=== PATIENT | male | born 1965 | race Caucasian/White ===

== ENCOUNTER 2018-05-13 11:20 | Emergency (ER) | payer BC, OTHER ==
--- NOTE | 2018-05-13 12:02 | UC ---
Lower Extremity/Ankle HPI - HPI Summary HPI Summary: 4 DAYS OF WORSENING PAIN, REDNESS, SWELLING LEFT FOOT ACROSS MTP JOINTS. WORST AT 1ST MTP. PT WITH KNOWN H/O GOUT. SAYS THIS IS FOR SURE A GOUTY FLARE. NO TRAUMA. - History of Current Complaint Chief Complaint: UCLowerExtremity Stated Complaint: FOOT COMPLAINT Time Seen by Provider: 05/13/18 11:36 Hx Obtained From: Patient Onset/Duration: Gradual Onset, Lasting Days, Still Present Severity Initially: Moderate Severity Currently: Moderate Pain Intensity: 4 Pain Scale Used: 0-10 Numeric Aggravating Factor(s): Standing, Ambulation Alleviating Factor(s): Rest Able to Bear Weight: Yes - WITH PAIN - Allergies/Home Medications Allergies/Adverse Reactions: Allergies Allergy/AdvReac Type Severity Reaction Status Date / Time No Known Allergies Allergy Verified 05/13/18 11:30 Home Medications: Home Medications Acetaminophen TAB* [Tylenol TAB*] 650 mg PO Q4H PRN 05/13/18 [History Confirmed 05/13/18] PMH/Surg Hx/FS Hx/Imm Hx - Additional Past Medical History Additional PMH: GOUT - Surgical History Surgical History: Yes Surgery Procedure, Year, and Place: tonsillectomy, detached retina - Social History Alcohol Use: Rare Substance Use Type: None Smoking Status (MU): Never Smoked Tobacco Review of Systems All Other Systems Reviewed And Are Negative: Yes Constitutional: Positive: Negative Skin: Positive: Other - REDNESS Respiratory: Positive: Negative Cardiovascular: Positive: Negative Gastrointestinal: Positive: Negative Musculoskeletal: Positive: Arthralgia, Decreased ROM, Edema Physical Exam Triage Information Reviewed: Yes Appearance: Well-Appearing, No Pain Distress, Well-Nourished Vital Signs: Initial Vital Signs Temp 98.3 F 05/13/18 11:24 Pulse 79 05/13/18 11:24 Resp 16 05/13/18 11:24 Pulse Ox 99 05/13/18 11:24 Vital Signs Reviewed: Yes Eyes: Positive: Conjunctiva Clear ENT: Positive: Hearing grossly normal Neck: Positive: Supple Respiratory: Positive: No respiratory distress, No accessory muscle use Cardiovascular: Positive: Pulses Normal Abdomen Description: Positive: Soft Musculoskeletal: Positive: ROM Limited @ - LEFT FOOT TOES, Edema @ - LEFT FOOT DISTALLY, Other: - TTP ALL MTP JOINTS, WORST AT 1ST MTP Neurological: Positive: Alert Psychological: Positive: Age Appropriate Behavior Skin: Positive: Other - ERYTHEMA AND WARMTH LEFT FOOT 1ST MTP Lower Extremity Course/Dx - Course Course Of Treatment: STATES HE USUALLY GETS COLCHICINE FOR GOUTY FLARES BUT THAT IT DOESN'T SEEM TO WORK VERY WELL. WILL TRY PREDNISONE. ADVISED PCP F/U IN SEVERAL WEEKS TO DISCUSS LABS AND DAILY PROPHYLACTIC TX. - Differential Dx/Diagnosis Provider Diagnosis: Acute gout of left foot Discharge - Sign-Out/Discharge Documenting (check all that apply): Patient Departure All imaging exams completed and their final reports reviewed: No Studies - Discharge Plan Condition: Stable Disposition: HOME Prescriptions: Clobetasol Propionate 0.05 % TOPICAL BID PRN #1 tube PRN Reason: Itching predniSONE TAB* [Deltasone 20 MG TAB*] 40 mg PO DAILY #10 tab Patient Education Materials: Low Purine Diet (ED), Gout (ED) Referrals: Giovani Ortiz MD [Primary Care Provider] - 2 Weeks Additional Instructions: YOUR SYMPTOMS ARE MOST CONSISTENT WITH GOUT. WILL TREAT WITH PREDNISONE FOR 5 DAYS. STAY WELL HYDRATED. FOLLOW-UP WITH YOUR PCP ONCE YOU HAVE BEEN SYMPTOM FREE FOR AT LEAST 2 WEEKS TO DISCUSS FURTHER EVAL AND LAB TESTING. YOU MAY BENEFIT FROM DAILY PROPHYLACTIC TREATMENT. IF YOUR SYMPTOMS DO NOT IMPROVE WITH PREDNISONE OKAY TO TRY OTC NAPROXEN 2 TABS (440MG) TWICE DAILY FOR A FEW DAYS. - Billing Disposition and Condition Condition: STABLE Disposition: Home
== END 2018-05-13 12:00 | disposition home or self-care (01) ==
LOC: UCEAST 11:20
DX: M10.072 Idiopathic gout, left ankle and foot (principal)
CPT/HCPCS: 99212; G0463

== ENCOUNTER 2018-08-23 10:19 | Emergency (ER) | payer BC ==
[2018-08-23 10:32] VITALS: BP 162/108
[2018-08-23] MEDS ORDERED: predniSONE TAB* 20 MG PO ONE (10:57)
[2018-08-23] MEDS ORDERED: Famotidine TAB* 20 MG PO ONE (10:57)
--- NOTE | 2018-08-23 11:51 | UC ---
Allergic Reaction HPI - HPI Summary HPI Summary: 52-year-old otherwise healthy male with a history of allergy/anaphylaxis presents with 1-1/2-2 days history of urticaria with itching. He has taken loratadine/fexofenadine for it without much benefit. He previously had anaphylaxis from "environmental allergens" approximately 20 years ago. He does have an EpiPen but has not used it as it is . He denies any respiratory symptoms, difficulty swallowing or breathing and any lip tongue or throat swelling. He has not had any allergy testing despite having these symptoms every couple of years. - History of Current Complaint Chief Complaint: UCAllergicReaction Stated Complaint: ALLERIGIC REACTION Hx Obtained From: Patient Pain Intensity: 0 Pain Scale Used: 0-10 Numeric - Allergies/Home Medications Allergies/Adverse Reactions: Allergies Allergy/AdvReac Type Severity Reaction Status Date / Time enviornmental Allergy Hives Uncoded 08/23/18 10:32 Home Medications: Home Medications Allopurinol 100 mg PO 08/23/18 [History] PMH/Surg Hx/FS Hx/Imm Hx Previously Healthy: Yes Endocrine History: Other - Allergy symptoms/anaphylaxis - Surgical History Surgical History: Yes Surgery Procedure, Year, and Place: tonsillectomy, detached retina - Family History Known Family History: Positive: Other - Denies severe allergy symptoms - Social History Occupation: Employed Full-time Alcohol Use: Rare Substance Use Type: None Smoking Status (MU): Never Smoked Tobacco Review of Systems All Other Systems Reviewed And Are Negative: Yes Constitutional: Positive: Negative Skin: Positive: Rash Eyes: Negative: Blurred Vision ENT: Negative: Sore Throat Respiratory: Negative: Shortness Of Breath, Cough Cardiovascular: Positive: Negative Motor: Positive: Negative Physical Exam Triage Information Reviewed: Yes Appearance: Well-Appearing, No Pain Distress, Well-Nourished Vital Signs: Initial Vital Signs Temp 98.6 F 08/23/18 10:28 Pulse 90 08/23/18 10:28 Resp 18 08/23/18 10:28 BP 162/108 08/23/18 10:28 Pulse Ox 99 08/23/18 10:28 Vital Signs Reviewed: Yes Eyes: Positive: Conjunctiva Clear ENT: Positive: Pharynx normal, Uvula midline - No uvular, lip or tongue swelling. Negative: Nasal drainage Neck: Positive: Supple Respiratory: Positive: Lungs clear Cardiovascular: Positive: RRR Musculoskeletal: Positive: Strength Intact Neurological: Positive: Alert Psychological Exam: Normal Skin: Positive: Other - Mild urticaria is diffusely spread, but mostly on the upper extremities Allergic Reaction Course/Dx - Course Course Of Treatment: Urticaria without known precipitating cause. Treated with Pepcid, steroid here. Continue outpatient and prescription given for EpiPen as well. Patient states that he gets very drowsy with Benadryl 70 like to avoid that. Recommend outpatient allergy testing. Blood pressure may be elevated from his recent use of antiallergy medicines. - Differential Dx/Diagnosis Differential Diagnosis/HQI/PQRI: Anaphylaxis, Angioedema, Bronchospasm, Local Allergic Reaction Provider Diagnosis: Urticaria, History of environmental allergies, Elevated blood pressure reading Discharge - Sign-Out/Discharge Documenting (check all that apply): Patient Departure All imaging exams completed and their final reports reviewed: No Studies - Discharge Plan Condition: Improved Disposition: HOME Prescriptions: EPINEPHrine [Epipen 2-John] 0.3 mg IM ONCE PRN #1 unit PRN Reason: severe allergy symptoms Famotidine TAB* [Pepcid 20 MG TAB*] 40 mg PO BID PRN #40 tab PRN Reason: Allergy Symptoms predniSONE TAB* [Deltasone TAB*] 50 mg PO DAILY #4 tab Patient Education Materials: General Allergic Reaction (ED) Referrals: Mira Muñoz MD [Primary Care Provider] - Additional Instructions: Call your doctor Saturday for an appt -- you should see an ski maker wood for testing. Return if severe allergy symptoms, difficulty breathing, worse or other concerns. Can use Loratadine/Fexofenadine with Pepcid. Have your doctor recheck your blood pressure. - Billing Disposition and Condition Condition: IMPROVED Disposition: Home
== END 2018-08-23 11:10 | disposition home or self-care (01) ==
LOC: UCEAST 10:19
DX: L50.9 Urticaria, unspecified (principal); I10 Essential (primary) hypertension; Z91.09 Other allergy status, other than to drugs and biological substances
CPT/HCPCS: 99212; A9270-GY; G0463; J7512

== ENCOUNTER 2018-08-24 19:37 | Emergency (ER) | payer BC ==
--- NOTE | 2018-08-24 19:51 | ED ---
Allergic Reaction/Systemic - HPI Summary HPI Summary: This patient is a 52 year old M presenting to ED with a chief complaint of lip swelling since 1910. Patient has had anaphylaxis before, but not for twenty years. Yesterday, patient had hives all over body. He went to where they gave him Prednisone, which patient has been taking. The hives went away and have not returned. Today, he felt his lips swell and wanted to come to ER in case. He does not know what he is allergic to. Patient is on allopurinol and an DELMA inhibitor since two months ago. The patient rates the pain 0/10 in severity. Symptoms aggravated by nothing. Symptoms alleviated by Prednisone. Patient denies SOB, abdominal pain, N/V/D, rash, itching. PMHx of HTN, gout. PSHx of retina detachment. FHx of HTN but no DM. Patient drinks alcohol but does not use tobacco or substances. - History of Current Complaint Time Seen by Provider: 08/24/18 19:45 Hx Obtained From: Patient Onset/Duration: Gradual Onset, Started days ago - Yesterday Severity Currently: None Pain Intensity: 0 Pain Scale Used: 0-10 Numeric Location: Discrete @ - Lips Character: Swelling Aggravating Factor(s): Nothing Alleviating Factor(s): Other - Prednisone Associated Signs And Symptoms: Negative: Abdominal Pain, Nausea, Rash, Throat Tightening, Vomiting - Allergies/Home Medications Allergies/Adverse Reactions: Allergies Allergy/AdvReac Type Severity Reaction Status Date / Time enviornmental Allergy Severe Hives Uncoded 08/24/18 19:48 PMH/Surg Hx/FS Hx/Imm Hx Endocrine/Hematology History: Denies: Hx Diabetes Cardiovascular History: Reports: Hx Hypertension Musculoskeletal History: Reports: Hx Gout - Surgical History Surgery Procedure, Year, and Place: tonsillectomy, detached retina - Family History Known Family History: Positive: Hypertension, Other - Denies severe allergy symptoms Negative: Diabetes - Social History Alcohol Use: Rare Hx Substance Use: No Substance Use Type: Reports: None Hx Tobacco Use: No Smoking Status (MU): Never Smoked Tobacco Review of Systems Negative: Abdominal Pain, Vomiting, Diarrhea, Nausea Skin: Negative - Itching, Other - Lips swelling Negative: Rash All Other Systems Reviewed And Are Negative: Yes Physical Exam - Summary Physical Exam Summary: Appearance: Well-appearing, Well-nourished, lying in bed comfortable Skin: mild swelling of right side of upper and lower lip. No hives on visualized skin. Eyes: sclera anicteric, no conjunctival pallor ENT: mucous membranes moist Neck: deferred Respiratory: No signs of respiratory distress Cardiovascular: Appears well perfused, pulses are nml Abdomen: deferred Musculoskeletal: Moving all 4 extremities without obvious discomfort Neurological: Awake and alert, mentation is normal, speech is fluent and appropriate Psychiatric: affect is normal, does not appear anxious or depressed Triage Information Reviewed: Yes Vital Signs On Initial Exam: Initial Vitals Temp Pulse Resp BP Pulse Ox 98.6 F 111 24 168/102 96 08/24/18 19:44 08/24/18 19:44 08/24/18 19:44 08/24/18 19:44 08/24/18 19:44 Vital Signs Reviewed: Yes Re-Evaluation - Re-Evaluation First Eval Re-Evaluation Time: 20:54 Comment: Patient's angioedema has not progressed. Will continue to monitor patient and perhaps discharge after an hour. Patient will be discharged home with dx of angioedema. Patient understands and agrees with this plan. Allergic Reaction Course/Dx - Course Course Of Treatment: This patient is a 52 year old M presenting to ED with a chief complaint of lip swelling since 1909. In the ED course, patient received Tenormin and his angioedema has not progressed. Patient will be discharged home with dx of angioedema and instructions to stop taking his DELMA inhibitor and switch HTN medication. Patient understands and agrees with this plan. - Diagnoses Provider Diagnoses: Angioedema Discharge - Sign-Out/Discharge Documenting (check all that apply): Patient Departure - Discharge Patient Received Moderate/Deep Sedation with Procedure: No - Discharge Plan Condition: Good Disposition: HOME Prescriptions: Hydrochlorothiazide TAB* [Hydrodiuril TAB*] 50 mg PO DAILY #30 tab Patient Education Materials: Angioedema (ED) Referrals: Mira Muñoz MD [Primary Care Provider] - Additional Instructions: I am suspicious that your lip swelling is a condition called angioedema, which is most commonly seen in people taking DELMA inhibitors. The treatment for this is to stop the DELMA inhibitor, and it usually goes away in a day or two. It does tend to recur if you go back on an DELMA-I, so I would recommend an alternative medication for your blood pressure. - Billing Disposition and Condition Condition: GOOD Disposition: Home - Attestation Statements Document Initiated by Mckinleyibe: Yes Documenting Scribe: Frederic Schmitz Provider For Whom Tamiko is Documenting (Include Credential): Bishnu Mckenzie MD Scribe Attestation: I, Frederic Schmitz, scribed for Bishnu Mckenzie MD on 08/25/18 at 0314. Scribe Documentation Reviewed: Yes Provider Attestation: The documentation as recorded by the Frederic robison accurately reflects the service I personally performed and the decisions made by me, Bishnu Mckenzie MD Status of Scribe Document: Viewed
[2018-08-24] MEDS ORDERED: Atenolol TAB* 25 MG PO ONE (19:58)
[2018-08-24 22:06] VITALS: BP 117/78
== END 2018-08-24 22:05 | disposition home or self-care (01) ==
LOC: ED 19:37
DX: T78.3XXA Angioneurotic edema, initial encounter (principal); R60.0 Localized edema; I10 Essential (primary) hypertension; M10.9 Gout, unspecified
CPT/HCPCS: 99283